=== PATIENT | female | born 1990 | race African-American/Black ===

== ENCOUNTER 2020-09-04 23:54 | Emergency (ER) | payer OTHER ==
[~2020-09-04] VITALS: Ht 165.1 cm; Wt 73.0 kg
[2020-09-05 01:10] VITALS: BP 120/74
== END 2020-09-05 01:16 | disposition home or self-care (01) ==
LOC: ER 23:54
DX: R06.02 Shortness of breath (principal); J45.909 Unspecified asthma, uncomplicated; Z20.828 Contact with and (suspected) exposure to other viral communicable diseases
CPT/HCPCS: 87635; 93005; 99283; C9803